=== PATIENT | male | born 1980 | race Hispanic/Latino ===

== ENCOUNTER 2022-03-14 21:54 | Emergency (ER) | payer OTHER ==
[2022-03-14] MEDS ORDERED: SODIUM CHLORIDE 0.9% 1000 ML 1,000 ML IV ONE (23:52)
[2022-03-14] MEDS ORDERED: ONDANSETRON 4 MG/2 ML INJ IV ONE (23:52)
--- NOTE | 2022-03-14 23:58 | Emergency Department Report ---
ED General Adult HPI - General Chief complaint: Dizziness Stated complaint: N/V,VERTIGO PUI?: Yes Time Seen by Provider: 03/14/22 23:39 Source: patient, RN notes reviewed Mode of arrival: Stretcher Limitations: No Limitations - History of Present Illness Initial comments: The patient was evaluated in the emergency department for symptoms described in the history of present illness. He/she was evaluated in the context of the [facility] COVID-19 pandemic, which necessitated consideration that the patient might be at risk for infection with the virus that causes COVID-19. Institutional protocols and algorithms that pertain to the evaluation of patients at risk for COVID-19 are in a state of rapid change based on information released by regulatory bodies including the CDC and federal and state organizations. These policies and algorithms were followed during the patient's care in the emergency department. Please note that these policies, procedures and recommendations changed on a rapid basis. During the history and physical examination, I had on complete personal protective equipment. This gentleman is a 41-year-old patient, who denies chronic medical conditions, and reports a recent positive diagnosis of COVID-19. The patient currently resides in [place]. 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 The patient presents today with complaint of nausea, weakness, lightheadedness, and dizziness. Denies headache, neck pain, chest pain, abdominal pain, shortness of breath, and urinary symptoms. He is COVID-19 vaccinated, but has not received his booster. -: days(s) Consistency: constant Improves with: rest Worsens with: movement - Related Data Previous Rx's Medication Instructions Recorded Last Taken Type Ondansetron [Zofran Odt] 4 mg PO Q8HR PRN #20 tab.rapdis 03/15/22 Unknown Rx Allergies Allergy/AdvReac Type Severity Reaction Status Date / Time No Known Allergies Allergy Unverified 03/14/22 23:23 ED Review of Systems ROS: Stated complaint: N/V,VERTIGO Other details as noted in HPI Constitutional: malaise, weakness. denies: fever Eyes: denies: eye discharge ENT: denies: epistaxis Respiratory: denies: cough, shortness of breath Cardiovascular: denies: chest pain Gastrointestinal: nausea. denies: abdominal pain, vomiting, hematemesis, melena, hematochezia Genitourinary: denies: dysuria Musculoskeletal: myalgia Neurological: weakness ED Past Medical Hx - Past Medical History Previous Medical History?: No - Surgical History Past Surgical History?: No - Social History Smoking Status: Current Every Day Smoker Substance Use Type: None - Medications Home Medications: Home Medications Medication Instructions Recorded Confirmed Last Taken Type Ondansetron [Zofran Odt] 4 mg PO Q8HR PRN #20 tab.rapdis 03/15/22 Unknown Rx ED Physical Exam - General Limitations: No Limitations General appearance: alert, in no apparent distress - Head Head exam: Present: atraumatic, normocephalic - Eye Eye exam: Present: normal appearance, EOMI. Absent: nystagmus - ENT ENT exam: Present: normal exam, normal orophraynx, mucous membranes moist, normal external ear exam - Neck Neck exam: Present: normal inspection, full ROM. Absent: tenderness, meningismus - Respiratory Respiratory exam: Present: other (Pulmonary auscultation not performed secondary to lack of disposable stethoscope). Absent: stridor - Cardiovascular Cardiovascular Exam: Present: bradycardia (Bradycardia seen on manager monitoring. Cardiac auscultation not performed secondary to lack of disposable stethoscope) - GI/Abdominal GI/Abdominal exam: Present: soft. Absent: distended, tenderness, guarding, rebound, rigid, pulsatile mass - Rectal Rectal exam: Present: deferred - Extremities Exam Extremities exam: Present: normal inspection, full ROM, other (2+ pulses noted in the bilateral upper and lower extremities. There is no palpable cord. neg ative Homans sign. Muscular compartments are soft. The pelvis is stable.). Absent: pedal edema, calf tenderness - Back Exam Back exam: Present: normal inspection. Absent: tenderness, CVA tenderness (R), CVA tenderness (L), paraspinal tenderness, vertebral tenderness - Neurological Exam Neurological exam: Present: alert, oriented X3, normal gait, other (No facial droop. Tongue midline. Extraocular movements intact bilaterally. Facial sensation intact to light touch in V1, V2, V3 distribution bilaterally. 5 and a 5 strength in 4 extremities. Sensation intact to light touch in 4 extremities.). Absent: motor sensory deficit - Psychiatric Psychiatric exam: Present: normal affect, normal mood - Skin Skin exam: Present: warm, dry, intact, normal color. Absent: rash ED Course Vital Signs 03/14/22 03/15/22 21:54 00:10 Temperature 97 F L Pulse Rate 83 Respiratory 18 Rate Blood Pressure 128/72 O2 Sat by Pulse 100 Oximetry O2 Sat by Pulse 100 Oximetry [ Digit-Finger] - Reevaluation(s) Reevaluation #1: 03/15/22 00:07 Differential diagnosis, include but not limited to: Orthostasis, vagal event, dehydration, electrolyte derangement, thyroid derangement, COVID-19, pulmonary embolism Assessment and plan: 41-year-old gentleman with recent diagnosis of COVID-19, with a complaint of nausea, lightheadedness, and dizziness. He is clinically sober with a GCS of 15, ambulatory with a steady gait, nonfocal motor examination. He is able to ambulate in place, on portable pulse oximeter, without desaturation. He is not currently tachycardic, tachypneic or hypoxic, and I find him to be PERC negative, as well as low risk by Wells criteria for pulmonary embolism. Suspect natural history of COVID-19. Patient advised as to the natural history of COVID-19. Check appropriate laboratory studies, treat with fluids and Zofran. Given recent diagnosis of COVID-19, as well as multiple recent airplane trips, check D-dimer, although I think pulmonary embolism is very unlikely Reevaluation #2: 03/15/22 00:09 Bradycardia/heart rate of 44 reviewed and appreciated. Blood pressure 120 acceptable. Patient is in the , and is likely conditions. This is asymptomatic bradycardia. 03/15/22 02:17 Laboratory studies unremarkable noncontributory. Patient resting comfortably in stretcher. May be discharged with expectant management and outpatient follow-up - Pulse Oximetry Interpretation Digit-Finger Initial Pulse Oximetry Readin O2 Sat by Pulse Oximetry: 100 Actions Taken: none ED Medical Decision Making - Lab Data Result diagrams: 03/15/22 00:14 03/15/22 00:14 Vital Signs 03/14/22 21:54 Temperature 97 F L Pulse Rate 83 Respiratory 18 Rate Blood Pressure 128/72 O2 Sat by Pulse 100 Oximetry Lab Results 03/15/22 03/15/22 03/15/22 Range/Units 00:14 00:14 00:14 WBC 8.1 (4.5-11.0) K/mm3 RBC 4.71 (3.65-5.03) M/mm3 Hgb 14.6 (11.8-15.2) gm/dl Hct 43.0 (35.5-45.6) % MCV 91 (84-94) fl MCH 31 (28-32) pg MCHC 34 (32-34) % RDW 12.2 L (13.2-15.2) % Plt Count 321 (140-440) K/mm3 Lymph % (Auto) 30.7 (13.4-35.0) % [place] % (Auto) 7.4 H (0.0-7.3) % Eos % (Auto) 2.6 (0.0-4.3) % Baso % (Auto) 1.3 (0.0-1.8) % Lymph # (Auto) 2.5 (1.2-5.4) K/mm3 [place] # (Auto) 0.6 (0.0-0.8) K/mm3 Eos # (Auto) 0.2 (0.0-0.4) K/mm3 Baso # (Auto) 0.1 (0.0-0.1) K/mm3 Seg Neutrophils % 58.0 (40.0-70.0) % Seg Neutrophils # 4.7 (1.8-7.7) K/mm3 PT 12.8 (12.2-14.9) Sec. INR 0.87 (0.87-1.13) D-Dimer 211.13 (0-234) ng/mlDDU Sodium 138 (137-145) mmol/L Potassium 5.1 H (3.6-5.0) mmol/L Chloride 101.7 (98-107) mmol/L Carbon Dioxide 23 (22-30) mmol/L Anion Gap 18 mmol/L BUN 13 (9-20) mg/dL Creatinine 0.8 (0.8-1.3) mg/dL Estimated GFR > 60 ml/min BUN/Creatinine Ratio 16 % Glucose 119 H (75-100) mg/dL Calcium 9.6 (8.4-10.2) mg/dL Magnesium 2.00 (1.7-2.3) mg/dL Total Bilirubin 0.40 (0.1-1.2) mg/dL AST 26 (5-40) units/L ALT 26 (7-56) units/L Alkaline Phosphatase 45 (35-129) units/L Total Creatine Kinase 190 H (55-170) units/L Troponin T < 0.010 (0.00-0.029) ng/mL Total Protein 7.2 (6.3-8.2) g/dL Albumin 4.7 (3.9-5) g/dL Albumin/Globulin Ratio 1.9 % TSH (0.270-4.200) mlU/mL 03/15/22 Range/Units 00:14 WBC (4.5-11.0) K/mm3 RBC (3.65-5.03) M/mm3 Hgb (11.8-15.2) gm/dl Hct (35.5-45.6) % MCV (84-94) fl MCH (28-32) pg MCHC (32-34) % RDW (13.2-15.2) % Plt Count (140-440) K/mm3 Lymph % (Auto) (13.4-35.0) % [place] % (Auto) (0.0-7.3) % Eos % (Auto) (0.0-4.3) % Baso % (Auto) (0.0-1.8) % Lymph # (Auto) (1.2-5.4) K/mm3 [place] # (Auto) (0.0-0.8) K/mm3 Eos # (Auto) (0.0-0.4) K/mm3 Baso # (Auto) (0.0-0.1) K/mm3 Seg Neutrophils % (40.0-70.0) % Seg Neutrophils # (1.8-7.7) K/mm3 PT (12.2-14.9) Sec. INR (0.87-1.13) D-Dimer (0-234) ng/mlDDU Sodium (137-145) mmol/L Potassium (3.6-5.0) mmol/L Chloride (98-107) mmol/L Carbon Dioxide (22-30) mmol/L Anion Gap mmol/L BUN (9-20) mg/dL Creatinine (0.8-1.3) mg/dL Estimated GFR ml/min BUN/Creatinine Ratio % Glucose (75-100) mg/dL Calcium (8.4-10.2) mg/dL Magnesium (1.7-2.3) mg/dL Total Bilirubin (0.1-1.2) mg/dL AST (5-40) units/L ALT (7-56) units/L Alkaline Phosphatase (35-129) units/L Total Creatine Kinase (55-170) units/L Troponin T (0.00-0.029) ng/mL Total Protein (6.3-8.2) g/dL Albumin (3.9-5) g/dL Albumin/Globulin Ratio % TSH 1.820 (0.270-4.200) mlU/mL - EKG Data EKG shows normal: sinus rhythm Rate: bradycardia - EKG Data 03/15/22 00:07 The EKG is interpreted at 23: 59 Sinus rhythm, rate 44 bpm. Normal axis, normal P wave axis, QTC 4 5 6 ms, abnormal EKG. Not a STEMI. Critical care attestation.: If time is entered above; I have spent that time in minutes in the direct care of this critically ill patient, excluding procedure time. ED Disposition Clinical Impression: COVID-19, Nausea, Dizziness Disposition: 01 HOME / SELF CARE / HOMELESS Is pt being admited?: No Does the pt Need Aspirin: No Condition: Good Instructions: COVID-19, Prevent the Spread of COVID-19 if You Are Sick - [facility] Additional Instructions: Patient reports a recent diagnosis of COVID-19 the symptoms of COVID will typically persist 10 to 14 days but may last longer.. There is no cure at this time for COVID. Please make certain to self isolate and self quarantine, follow-up with an outpatient primary care doctor within the next 3 to 5 days, wash hands with soap and water frequently, thoroughly and often, patient may take the prescribed medications as needed and directed. Advance diet and drink plenty of fluids as tolerated. Avoid interactions with the very elderly, very young, and those with chronic medical conditions. Return to the emergency room right away with new pain, worsening pain, migration of pain, projectile vomiting, change in mental status, confusion, inability to tolerate liquid feeds, new, worsened or different symptoms not present on the initial emergency room evaluation. Please return to the emergency room right away with new pain, worsened pain, migration of pain, projectile vomiting, change in mental status, confusion, tam bility tolerate liquid feeds, new, worsened or different symptoms not present on the initial emergency room evaluation Prescriptions: Ondansetron [Zofran Odt] 4 mg PO Q8HR PRN #20 tab.rapdis PRN Reason: Nausea Referrals: WADE CODY MD [Primary Care Provider] - 3-5 Days Forms: Work/School Release Form(ED)
[2022-03-15 00:25] LABS: Basophils # (Auto) 0.1 K/mm3 (0.0-0.1); Basophils % (Auto) 1.3 % (0.0-1.8); Eosinophils # (Auto) 0.2 K/mm3 (0.0-0.4); Eosinophils % (Auto) 2.6 % (0.0-4.3); Hemoglobin 14.6 gm/dl (11.8-15.2); Lymphocytes # (Auto) 2.5 K/mm3 (1.2-5.4); Lymphocytes % (Auto) 30.7 % (13.4-35.0); Mean Corpuscular HGB Conc 34 % (32-34); Mean Corpuscular Volume 91 fl (84-94); Monocytes # (Auto) 0.6 K/mm3 (0.0-0.8); Monocytes % (Auto) 7.4 % (0.0-7.3); Platelet Count 321 K/mm3 (140-440); Red Blood Count 4.71 M/mm3 (3.65-5.03); Red Cell Distribution Width 12.2 % (13.2-15.2)
[2022-03-15 00:50] LABS: Alanine Aminotransferase 26 units/L (7-56); Albumin 4.7 g/dL (3.9-5); BUN/Creatinine Ratio 16; Blood Urea Nitrogen 13 mg/dL (9-20); Calcium 9.6 mg/dL (8.4-10.2); Hemolysis Index 52
[2022-03-15 00:54] LABS: INR 0.87 (0.87-1.13)
[2022-03-15 03:34] VITALS: BP 128/85
--- NOTE | 2022-03-15 09:21 | Electrocardiograph Report ---
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
== END 2022-03-15 03:34 | disposition home or self-care (01) ==
LOC: ED 21:54
DX: R11.0 Nausea (principal); R42 Dizziness and giddiness
CPT/HCPCS: 36415; 80053; 82550; 83735; 84443; 84484; 85025; 85379; 85610; 93005; 96361; 96374; 99284; J2405; J7030